=== PATIENT | female | born 1945 | race Caucasian/White ===

== ENCOUNTER → 2020-06-19 10:34 | Outpatient (CLI) | payer MEDICARE, BC, SELFPAY | PROVIDERS: PCP Student in an Organized Health Care Education/Training Program; Referring Provider Otolaryngology; Visit Provider Otolaryngology | DX: Z11.59 Encounter for screening for other viral diseases (principal) | CPT/HCPCS: 87635; 94799; U0003 ==

== ENCOUNTER → 2020-06-26 15:39 | Outpatient (CLI) | payer MEDICARE, BC, SELFPAY ==
[2015-08-25 20:04] VITALS: BMI 26.9
--- NOTE | 2020-06-26 | LES_PTH ---
PATIENT: YOVANNY SHARMA LOC: [facility] U#:[id number] AGE/SX: 79/F ROOM: RE06/26/[address]: Dr. Emanuel Humphreys MD : 1945 BED: DIS: SPEC #: [id number] RECD: 06/26/20 15:02 STATUS: TASHA EDI #: [id number] MENA: 06/26/20 00:[address]: Emanuel Humphreys DEPT: SURGICAL PATHOLOGY RECD BY: Dwight Stoll ENTERED: 06/27/20 08:02 SP TYPE: Lesion OTHR DR: Dr. Lam Santillan, DO Tissues: Internal nose, NOS Procedures: Surgery Specimen Level IV HEADER OPERATION: Excision left intranasal lesion PRE-OP DIAGNOSIS: Cutaneous horn TISSUE SUBMITTED: Left nasal sill MICROSCOPIC DIAGNOSIS Left intranasal lesion, biopsy: Seborrheic keratosis. Negative for malignancy. SJ:fuad 06/28/20 COMMENT Case has been reviewed in consultation with Dr. Gonzalez who concurs with the above diagnosis. IDC:AM MICROSCOPIC DESCRIPTION Slides are reviewed. GROSS DESCRIPTION Received is one container labeled with the patient's name and not further designated. The specimen consists of a piece of ordaz-white skin measuring 0.2 x 0.2 x 0.1 cm. The specimen is totally submitted in one cassette. / JOHN:fuad 06/27/20 TC:1 CPT: 31732
== END ==
PROVIDERS: PCP Student in an Organized Health Care Education/Training Program; Referring Provider Otolaryngology; Visit Provider Otolaryngology
DX: L82.1 Other seborrheic keratosis (principal); L85.8 Other specified epidermal thickening
CPT/HCPCS: 88305

== ENCOUNTER 2021-08-14 15:36 | Emergency (ER) | payer MEDICARE, BC, SELFPAY ==
[2021-08-14 15:37] VITALS: BP 114/65; PULSE 112; RESP 16; TEMP 36.4; O2SAT 95; BMI 22.6
[2021-08-14] MEDS: Ondansetron ODT 4 MG Tablet PO (15:52)
[2021-08-14 15:56] VITALS: BP 114/65; PULSE 112; RESP 16; TEMP 36.4; O2SAT 95
--- NOTE | 2021-08-14 16:07 | EDS_ITS ---
HPI History of Present Illness Chief Complaint: Complaint Informant: patient Narrative Narrative: 75-year-old female states that three weeks ago she began to have nausea and vomiting night sweats. She states that she went to an urgent care was told that she had a UTI was placed on an unknown antibiotic. She continued to have symptoms so she went and saw a PA with the [facility]. She states that they did a urine culture and told her that she had E. coli growing in the urine. She states that she went yesterday and received two weeks of nitrofurantoin to take. She states she is not having any dysuria hematuria urinary frequency. She states that last night however she began to have nausea and vomiting again. She feels lethargy. [facility] Medical History (Updated 08/14/21 @ 17:[address] Joss Mora DO) Hyperlipidemia Hypertension Home Medications calcium carbonate-vitamin D3 [Caltrate with Vitamin D3] 1 tab PO DAILY@0800 08/02/13 [History Last Taken Unknown] multivitamin with folic acid [Thera] 1 tab PO DAILY 08/02/13 [History Last Taken Unknown] paroxetine HCl [Paxil] 10 mg PO DAILY 08/02/13 [History Last Taken Unknown] simvastatin 20 mg PO QHS 08/02/13 [History Last Taken Unknown] aspirin 81 mg PO BIDCM 08/25/15 [History Last Taken Unknown] lisinopril 20 mg PO DAILY 08/14/21 [History Last Taken Unknown] nitrofurantoin monohyd/m-cryst 100 mg PO BID 08/14/21 [History Last Taken Unknown] ondansetron 4 mg PO Q6H PRN PRN #15 tab 08/14/21 [Rx Last Taken Unknown] potassium chloride 40 meq PO DAILY #10 tab 08/14/21 [Rx Last Taken Unknown] Allergy/AdvReac Type Severity Reaction Status Date / Time celecoxib [From Celebrex] AdvReac Other Verified 08/14/21 15:56 Surgical History (Updated 08/14/21 @ 16:[address] Joss Mora DO) No pertinent past surgical history Social History (Updated 08/14/21 @ 16:[address] Joss Mora DO) Smoking Status: Never smoker substance use type: does not use ROS ROS ED ROS Narrative Lethargy Constitutional Constitutional ED: Reports sweats; Denies chills or weight loss Eyes Eyes: Denies change in vision or diplopia ENT ENT ED: Denies ear pain, rhinorrhea or sore throat Cardiovascular Cardiovascular: Denies chest pain, orthopnea, palpitations or racing heartbeat Respiratory/Chest Respiratory/Chest: Denies cough, dyspnea or orthopnea Gastrointestinal Gastrointestinal: Reports nausea and vomiting; Denies abdominal pain or diarrhea Genitourinary Genitourinary ED: Denies dysuria, hematuria or urinary frequency Musculoskeletal Musculoskeletal: Denies arthralgias or myalgias Integumentary Denies abscess or rash Neurologic Neurologic: Reports headache(s); Denies weakness Psychiatric Psychiatric: Denies anxiety, depression, suicidal ideation or suicidal thoughts Endocrine Endocrinology: Denies polydipsia, polyphagia or polyuria Allergic/Immunologic Allergic/Immunologic ED: Denies mouth swelling, tongue swelling or urticaria EXAM Physical Exam Const Vital Signs: 08/14/21 15:37 08/14/21 15:56 08/14/21 17:00 Temperature 97.6 F L 97.6 F L 97.6 F L Temperature Source Temporal Temporal Temporal Pulse Rate 112 H 112 H 112 H Respiratory Rate 16 16 16 Blood Pressure 114/65 114/65 114/65 Blood Pressure Mean 81 81 81 Pulse Ox 95 95 95 Oxygen Delivery Method Room Air Room Air Room Air Positive well nourished and well developed General Appearance ED: well developed HEENT Reports normocephalic, head/scalp atraumatic and moist mucous membranes Eyes PERRL and EOMs intact bilaterally Neck no lymphadenopathy, supple and no JVD Resp normal respiratory effort and clear to auscultation bilaterally Cardio regular rate and no murmurs Rate: tachycardic GI normal to inspection, nondistended, normoactive bowel sounds and non-tender Palpation: soft Back/Spine no CVA tenderness and normal ROM Extremity normal to inspection General Extremety ED: Negative for edema General Extremity: Negative for edema Neuro oriented x3 and CN's II-XII intact bilaterally Sensorium / Orientation: alert Motor Exam: strength 5/5 throughout Psych mental status grossly normal Mood & Affect: Negative for depressed or tearful Skin no rashes or lesions noted and no wounds MDM MDM MDM Narrative Medical decision making narrative: White count 6.3. CMP shows a potassium 3.1. Creatinine 0.97. Lactic acid is normal. Urinalysis demonstrates rare bacteria 0 to 5 whites 0 to 5 epithelial cells. This was sent for culture. Patient received Zofran and IV fluids. Interpretation the chest x-ray is no acute process. Old granulomatous disease noted. At this point patient is hemodynamically stable. All right for Zofran and potassium. She also received Toradol for headaches she wishes to continue the Macrobid until our culture is back think that's reasonable. The culture is negative she can discontinue it. She did get a flu shot yesterday and wonders what role that is planned in her symptomatology today. Lab Data Attestation: I reviewed the patient's lab results. Labs: Laboratory Results - last 24 hr 08/14/21 08/14/21 08/14/21 15:55 16:15 16:15 WBC 6.3 RBC 3.75 L Hgb 11.6 L Hct 35.5 L MCV 94.7 MCH 30.9 MCHC 32.7 RDW Std Deviation 44.4 H RDW Coeff of Joseph 12.8 Plt Count 190 MPV 10.3 Immature Gran % (Auto) 0.500 Neut % (Auto) 89.4 H Lymph % (Auto) 5.9 L [place] % (Auto) 3.7 Eos % (Auto) 0.3 Baso % (Auto) 0.2 Absolute Neuts (auto) 5.6 Absolute Lymphs (auto) 0.37 L Nucleated RBC % 0 Differential Comment SCANNED Sodium 139 Potassium 3.1 L Chloride 102 Carbon Dioxide 27.0 Anion Gap 10 BUN 15 Creatinine 0.97 Estim Creat Clear Calc 45.47 Est GFR (MDRD) Af Amer 72 Est GFR (MDRD) Non-Af 59 L BUN/Creatinine Ratio 15.5 Glucose 131 H Lactic Acid Calcium 9.2 Total Bilirubin 0.40 AST 21 ALT 21 Alkaline Phosphatase 62 Total Protein 7.5 Albumin 3.3 Globulin 4.2 Albumin/Globulin Ratio 0.8 L Urine Color Yellow Urine Clarity Sl. Cloudy Urine pH 5.0 Ur Specific [place] 1.015 Urine Protein 30 H Urine Glucose (UA) Normal Urine Ketones 50 H Urine Occult Blood 25 H Urine Nitrite Negative Urine Bilirubin Negative Urine Urobilinogen Normal Ur Leukocyte Esterase 100 H Urine RBC 0 SEEN Urine WBC 0-5 SEEN Ur Squamous Epith Cells 0-5 SEEN Urine Bacteria RARE Urine Mucus 0 SEEN 08/14/21 16:15 WBC RBC Hgb Hct MCV MCH MCHC RDW Std Deviation RDW Coeff of Joseph Plt Count MPV Immature Gran % (Auto) Neut % (Auto) Lymph % (Auto) [place] % (Auto) Eos % (Auto) Baso % (Auto) Absolute Neuts (auto) Absolute Lymphs (auto) Nucleated RBC % Differential Comment Sodium Potassium Chloride Carbon Dioxide Anion Gap BUN Creatinine Estim Creat Clear Calc Est GFR (MDRD) Af Amer Est GFR (MDRD) Non-Af BUN/Creatinine Ratio Glucose Lactic Acid 1.4 Calcium Total Bilirubin AST ALT Alkaline Phosphatase Total Protein Albumin Globulin Albumin/Globulin Ratio Urine Color Urine Clarity Urine pH Ur Specific [place] Urine Protein Urine Glucose (UA) Urine Ketones Urine Occult Blood Urine Nitrite Urine Bilirubin Urine Urobilinogen Ur Leukocyte Esterase Urine RBC Urine WBC Ur Squamous Epith Cells Urine Bacteria Urine Mucus Discharge Plan Triage Chief Complaint: Complaint ED Provider: Joss Mora Dx/Rx/DC Orders Clinical Impression: Acute hypokalemia, Vomiting Instructions: Nausea Vomit Control, ED Hypokalemia Prescriptions: New ondansetron [ondansetron] 4 MG tablet 4 mg PO Q6H PRN PRN (Reason: Nausea) Qty: 15 RF: 0 potassium chloride 20 mEq tablet extended release 40 meq PO DAILY Qty: 10 RF: 0 No Action paroxetine HCl [Paxil] 10 MG tablet 10 mg PO DAILY RF: 0 simvastatin 20 MG tablet 20 mg PO QHS RF: 0 calcium carbonate-vitamin D3 [Caltrate with Vitamin D3] 1 TAB tablet 1 tab PO DAILY@0800 RF: 0 multivitamin with folic acid [Thera] 1 TABLET tablet 1 tab PO DAILY RF: 0 aspirin 325 MG tablet 81 mg PO BIDCM RF: 0 lisinopril 20 mg tablet 20 mg PO DAILY RF: 0 nitrofurantoin monohyd/m-cryst 100 mg capsule 100 mg PO BID RF: 0 Primary Care Provider: Lam Santillan Referrals: Lam Santillan DO [Primary Care Provider] - 1 Week Disposition Disposition: Home, Self Care
[2021-08-14 16:16] LABS: Mucous, Urine 0 SEEN /hpf (<or=2+); Red Blood Cells-Urine 0 SEEN /hpf (0-5)
[2021-08-14] MEDS: 0.9% Normal Saline 1,000 ML 1000 ML IV (16:17)
[2021-08-14 16:27] LABS: Absolute Lymphocyte Count 0.37 X10^3/uL (0.83-4.51); Absolute Neutrophil Count 5.6 X10^3/uL (2.0-7.7); Basophil# 0.01 X10^3/uL; Basophil% 0.2 % (0-1); Eosinophil# 0.02 X10^3/uL; Eosinophils% 0.3 % (0-5); Hematocrit 35.5 % (37-47); Hemoglobin 11.6 g/dL (12.0-15.0); Lymphocyte # 0.37 X10^3/ul (0.83-4.51); Lymphocyte % 5.9 % (19-41); Mean Corp Hgb Conc 32.7 g/dL (32-36); Mean Corpuscular Hgb 30.9 pg (27.0-32.0); Mean Corpuscular Volume 94.7 fL (81-99); Mean Platelet Vol. 10.3 fl (6.2-12.0); Monocyte# 0.23 X10^3/uL; Monocyte% 3.7 % (0-10); NRBC Flagged by Analyzer 0 % (0-5); Neutrophil # 5.62 X10^3/uL (2.7-7.7); Neutrophil % 89.4 % (47-70); POSITIVE DIFFERENTIAL YES; Platelet Count 190 K/mm3 (150-450); RBC Distribution Width CV 12.8 % (11.6-14.6); RBC Distribution Width SD 44.4 fl (35.1-43.9); Red Blood Count 3.75 M/mm3 (4.2-5.4); White Blood Count 6.3 K/mm3 (4.4-11.0)
[2021-08-14 16:45] LABS: ALB/GLOB Ratio 0.8 RATIO (0.9-2.4); AST(SGOT) 21 U/L (15-37); Alanine Aminotransfer ALT/SGPT 21 U/L (13-56); Albumin, Serum 3.3 g/dL (3.2-5.0); Alkaline Phosphatase 62 U/L (45-117); Anion Gap 10 (5-15); BUN 15 mg/dL (7-18); BUN/Creat Ratio 15.5 RATIO (10-20); Calcium,Total 9.2 mg/dL (8.5-10.1); Chloride 102 mmol/L (98-107); Creatinine, Serum 0.97 mg/dL (0.55-1.02); EST Glomerular Filtration Rate 59 mL/min (>60); Est Glom Filt Rate - Afr Amer 72 mL/min (>60); Estimated Creatinine Clearance 45.47 ml/min; Globulin 4.2 g/dL (2.2-4.2); Glucose 131 mg/dL (74-106); Potassium 3.1 mmol/L (3.5-5.1); Protein, Total 7.5 g/dL (6.4-8.2); Sodium Level 139 mmol/L (136-145)
[2021-08-14 16:52] LABS: Color, Urine Yellow (Yellow); Glucose, Dipstick Normal (Normal); Ketone-Dipstick 50 mg/dl (Negative); Leukocyte Esterase-Dipstick 100 /ul (Negative); Nitrite-Dipstick Negative (Negative); Occult Blood-Urine 25 /ul (Negative); Protein-Dipstick 30 mg/dl (Negative); Specific Gravity, Urine 1.015 (1.002-1.030); Urine Bilirubin Dipstick Negative (Negative); Urine Clarity Sl. Cloudy (Clear); Urine Urobilinogen Normal (Normal)
[2021-08-14 16:54] LABS: Lactic Acid 1.4 mmol/L (0.4-1.9)
[2021-08-14 17:00] VITALS: BP 114/65; PULSE 112; RESP 16; TEMP 36.4; O2SAT 95
[2021-08-14 17:01] LABS: Differential Indicated SCAN CRITERIA MET
[2021-08-14 17:07] LABS: Differential Comment SCANNED
[2021-08-14 17:19] LABS: Bacteria RARE /hpf (None Seen); Squamous Epithelial Cells - UA 0-5 SEEN /hpf (5-10); White Blood Cells 0-5 SEEN /hpf (0-5)
--- NOTE | 2021-08-14 17:30 | RAD_ITS ---
STUDY: X-RAY CHEST REASON FOR EXAM: Female, 75 years old. Lethargy. TECHNIQUE: Single AP portable view of the chest. COMPARISON: 08/25/2015. FINDINGS: The lungs are clear and expanded. There is no demonstrated pleural abnormality. Normal size heart. Normal mediastinum. There is stable hilar prominence thought to be secondary to calcified lymph nodes. Normal visualized pulmonary arteries. There is atherosclerotic calcification of the aortic arch with tortuosity. The thoracic spine is obscured by the mediastinum. Normal visualized ribs, clavicles, and shoulders. There is no demonstrated abnormality of the visualized soft tissue structures of the upper abdomen. RAD/Chest 1 View (Portable) IMPRESSION: No acute cardiopulmonary disease or interval change. Electronically Signed: Bebo Lincoln DO at 17:46 EDT Tel [phone], Service support ,
[2021-08-14] MEDS: Ketorolac 30 MG/ML Syringe IV (17:50)
== END 2021-08-14 18:07 | disposition home or self-care (01) ==
PROVIDERS: Student in an Organized Health Care Education/Training Program; Emergency Provider Emergency Medicine; PCP Student in an Organized Health Care Education/Training Program
DX: R11.2 Nausea with vomiting, unspecified (principal); E87.6 Hypokalemia; N39.0 Urinary tract infection, site not specified; E78.5 Hyperlipidemia, unspecified; I10 Essential (primary) hypertension; Z79.1 Long term (current) use of non-steroidal anti-inflammatories (NSAID); Z79.82 Long term (current) use of aspirin
CPT/HCPCS: 71045; 80053; 81001; 83605; 85025; 87086; 87426; 96361; 96374; 99284; J7030; A4216

== ENCOUNTER → 2024-08-12 | Outpatient (CLI) | payer MEDICARE, OTHER, SELFPAY ==
[2024-08-12 13:30] LABS: Absolute Lymphocyte Count 2.35 X10^3/uL (0.83-4.51); Absolute Neutrophil Count 2.7 X10^3/uL (2.0-7.7); Basophil# 0.03 X10^3/uL; Basophil% 0.5 % (0-1); Eosinophil# 0.16 X10^3/uL; Eosinophils% 2.7 % (0-5); Hematocrit 37.3 % (37-47); Lymphocyte # 2.35 X10^3/ul (0.83-4.51); Mean Corp Hgb Conc 32.2 g/dL (32-36); Mean Corpuscular Hgb 30.8 pg (27.0-32.0); Mean Corpuscular Volume 95.6 fL (81-99); Mean Platelet Vol. 10.8 fl (6.2-12.0); Monocyte# 0.58 X10^3/uL; Monocyte% 9.9 % (0-10); NRBC Flagged by Analyzer 0 % (0-5); Neutrophil # 2.74 X10^3/uL (2.7-7.7); Neutrophil % 46.7 % (47-70); Platelet Count 244 K/mm3 (150-450); RBC Distribution Width CV 12.9 % (11.6-14.6); RBC Distribution Width SD 45.8 fl (35.1-43.9); White Blood Count 5.9 K/mm3 (4.4-11.0)
[2024-08-12 13:31] LABS: Erythrocyte Sedimentation Rate 5 mm/hr (0-30)
[2024-08-12 13:52] LABS: CRP < 2.90 mg/L (0.0-3.0)
== END | disposition home or self-care (01) ==
PROVIDERS: PCP Student in an Organized Health Care Education/Training Program; Referring Provider Orthopaedic Surgery Orthopaedic Surgery of the Spine; Visit Provider Orthopaedic Surgery Orthopaedic Surgery of the Spine
DX: M54.9 Dorsalgia, unspecified (principal)
CPT/HCPCS: 36415; 85025; 85652; 86140

== ENCOUNTER → 2024-09-15 | Outpatient (CLI) | payer MEDICARE, OTHER, SELFPAY ==
--- NOTE | 2024-09-15 13:02 | NEURO ---
NCS and/or EMG Patient Report Ordering Doctor: Bowen Howell DATE OF SERVICE: 09/15/24 Chante presents with complaints of low back pain with aching in both legs. Pain radiates into the left lower limb and occasionally the right. Electrodiagnostic findings: Right peroneal motor nerve demonstrates normal distal latency, amplitude and conduction velocity. Right tibial motor nerve demonstrates normal distal latency, amplitude and conduction velocity. Left tibial motor nerve demonstrates normal distal latency, amplitude and conduction velocity. Left peroneal motor response measured at the tibialis anterior demonstrates normal distal latency and amplitude. Mildly prolonged right sural latency is noted. Normal superficial peroneal response bilaterally. Normal left sural response. Needle EMG testing was performed in the lower limbs. 1+ polyphasic motor units noted in the left tibialis anterior and left peroneus longus. Electrodiagnostic impression: This an abnormal study in the lower limbs 1. Electrodiagnostic findings suggestive of chronic left L5 radiculopathy. 2. No electrodiagnostic evidence is noted for peripheral polyneuropathy. Multi Select Codes Neurology Neurology Interp Codes: 77515-55 Musc test done w/n test comp (interp) (2) and 74949-88 Nrv cndj test 11-12 studies (interp)
== END | disposition home or self-care (01) ==
LOC: PSN 08:33
PROVIDERS: PCP Student in an Organized Health Care Education/Training Program; Referring Provider Orthopaedic Surgery Orthopaedic Surgery of the Spine; Visit Provider Orthopaedic Surgery Orthopaedic Surgery of the Spine
DX: M54.16 Radiculopathy, lumbar region (principal)
CPT/HCPCS: 95886; 95912

== ENCOUNTER 2025-07-18 10:50 | Emergency (ER) | payer MEDICARE, OTHER, SELFPAY ==
[2025-07-18 10:50] VITALS: BP 110/68; PULSE 84; RESP 16; TEMP 36.8; O2SAT 98
--- NOTE | 2025-07-18 12:46 | ED.VIS.BACK ---
HPI History of Present Illness Chief Complaint: Back Narrative Narrative: Chief complaint and HPI: 79-year-old female with past medical history of chronic back pain with history of surgery by Dr. Howell at [facility] presents for evaluation of acute on chronic back pain. Patient states she has been having progressively worsening back pain since April after a long van ride. She states she followed with her spine physician Dr. Howell who performed x-rays that were unremarkable for any acute pathology. She follows with pain management in which he referred her back to them. Patient states she has a scheduled upcoming appointment with pain management. She takes tramadol. She states her pain has not improved since April. She endorses intermittent radiation into her bilateral thighs and intermittent weakness bilateral since April. . States she presents today to the ED for MRI. Denies urinary retention, stool or urinary incontinence, saddle anesthesia, recent invasive manipulation of the spine, intravenous drug use, fever, nausea, vomiting. Review of systems: See HPI Medications: As listed on the chart Allergies: As listed on the chart PFSH: Per chart Vital signs: As listed on the chart. Reviewed. Physical exam: Gen: A&O x3, NAD Head: Normocephalic, atraumatic Eyes: No sclera icterus, conjunctiva clear ENT: Moist mucous membranes Neck: Trachea midline, No JVD, full range of motion CV: RRR, no murmurs, no peripheral edema Resp: Lungs CTA BL, no w/r/c GI: Abd soft, non-distended, non-tender, no r/r/g Musc: Full ROM, no deformity, no midline spinal tenderness-previous surgical lumbar incision healed, no bony step-offs, patient has tenderness to palpation of the paraspinal musculature of the lumbar spine bilaterally-recreates her pain, no signs of infection or trauma, strength+5/5 in all extremities, DP/PT pulses +2 bilaterally, good capillary refill, compartments soft, no saddle paresthesias Skin: Warm, dry Neuro: Alert, oriented, grossly intact, sensation intact Psych: Cooperative, appropriate mood and affect [facility] Medical History Hyperlipidemia Hypertension Home Medications ?Medication ?Instructions ?Recorded ?Last Taken ?Type calcium 600 mg (as 1 tab PO DAILY@0800 08/02/13 Unknown History carbonate)-vitamin D3 20 mcg (800 unit) tablet (Caltrate with Vitamin D3) multivitamin with folic acid 400 1 tab PO DAILY 08/02/13 Unknown History mcg tablet (Thera) paroxetine HCl 10 mg tablet (Paxil) 10 mg PO DAILY 08/02/13 Unknown History simvastatin 20 mg tablet 20 mg PO QHS 08/02/13 Unknown History aspirin 325 mg tablet,delayed 81 mg PO BIDCM 08/25/15 Unknown History release lisinopril 20 mg tablet 20 mg PO DAILY 08/14/21 Unknown History nitrofurantoin 100 mg PO BID 08/14/21 Unknown History monohydrate/macrocrystals 100 mg capsule ondansetron 4 mg disintegrating 4 mg PO Q6H PRN PRN Nausea #15 tabs 08/14/21 Unknown Rx tablet potassium chloride 20 mEq 40 meq (2 x 20 mEq) PO DAILY #10 08/14/21 Unknown Rx tablet,extended release tabs Allergy/AdvReac Type Severity Reaction Status Date / Time celecoxib (From Celebrex) AdvReac Other Verified 07/18/25 10:51 Surgical History No pertinent past surgical history Social History (Updated 07/18/25 @ 11:18 by Tanya Kumari) household members: spouse housing: house Smoking Status: Never smoker substance use type: does not use EXAM Physical Exam Const Vital Signs: 07/18/25 10:50 07/18/25 12:50 Temperature 98.3 F Temperature Source Oral Pulse Rate 84 80 Respiratory Rate 16 Blood Pressure 110/68 125/80 H Blood Pressure Mean 82 95 Pulse Ox 98 100 Oxygen Delivery Method Room Air MDM MDM MDM Narrative Medical decision making narrative: 79-year-old female with past medical history of chronic back pain with history of surgery by Dr. Howell at [facility] presents for evaluation of acute on chronic back pain. Patient states she has been having progressively worsening back pain since April after a long van ride. She states she followed with her spine physician Dr. Howell who performed x-rays that were unremarkable for any acute pathology. She follows with pain management in which he referred her back to them. Patient states she has a scheduled upcoming appointment with pain management. She takes tramadol. She states her pain has not improved since April. She endorses intermittent radiation into her bilateral thighs and intermittent weakness bilateral since April. States she presents today because she would like an MRI performed. Pain is not significantly worse today compared to previously. Patient presents for back pain. There has been no acute trauma. There is nothing to suggest any infectious etiology. Although I do feel that the patient would benefit from MRI outpatient, I do not have any concerns for acute cauda equina syndrome at this time and I do not feel any emergent MRI is needed. Patient states she does have an appointment scheduled with her PCP tomorrow in which she wanted to discuss ordering an MRI outpatient. I do think the patient should keep this appointment and that this is discussion is appropriate. Given that patient follows regularly with pain management and is on chronic tramadol, I will not be prescribing any pain medicine. I did offer IM Toradol and Valium for acute management here in the emergency department. She accepted. I did tell her to follow-up with her orthopedic physician. She confirmed understanding of the plan. Patient will be reevaluated after pain medicine. On reevaluation, patient's pain has improved. Patient stable to discharge home. Follow-up with PCP and orthopedic physician. She confirmed understand the plan. Patient will discharge home. Impression: 1. Acute on chronic back pain Discharge Plan Triage Chief Complaint: Back ED Provider: Lalo Avitia Dx/Rx/DC Orders Prescriptions: No Action paroxetine HCl [Paxil] 10 MG tablet 10 mg PO DAILY Patient Comments: ANTI-DEPRESSANT simvastatin 20 MG tablet 20 mg PO QHS Patient Comments: CHOLESTEROL LOWERING calcium carbonate-vitamin D3 [Caltrate with Vitamin D3] 1 TAB tablet 1 tab PO DAILY@0800 Patient Comments: MINERAL SUPPLEMET multivitamin with folic acid [Thera] 1 TABLET tablet 1 tab PO DAILY Patient Comments: MINERAL SUPPLEMENT aspirin 325 MG tablet 81 mg PO BIDCM Patient Comments: BLOOD THINNER lisinopril 20 mg tablet 20 mg PO DAILY nitrofurantoin monohyd/m-cryst 100 mg capsule 100 mg PO BID ondansetron [ondansetron] 4 MG tablet 4 mg PO Q6H PRN PRN (Reason: Nausea) Qty: 15 0RF potassium chloride 20 mEq tablet extended release 40 meq PO DAILY Qty: 10 0RF Primary Care Provider: Lam Santillan Referrals: Lam Santillan DO [Primary Care Provider] - Print Language: Spanish
[2025-07-18 12:50] VITALS: BP 125/80; PULSE 80; O2SAT 100
[2025-07-18 13:12] VITALS: BP 125/80; PULSE 78; RESP 16; TEMP 37.1; O2SAT 98
== END 2025-07-18 13:39 | disposition home or self-care (01) ==
PROVIDERS: Emergency Provider Surgery; PCP Student in an Organized Health Care Education/Training Program; Visit Provider Surgery
DX: M54.9 Dorsalgia, unspecified (principal); G89.29 Other chronic pain; R29.898 Other symptoms and signs involving the musculoskeletal system; E78.5 Hyperlipidemia, unspecified; I10 Essential (primary) hypertension
CPT/HCPCS: 99282